=== PATIENT | male | born 1995 | race African-American/Black ===

== ENCOUNTER 2018-09-28 11:27 | Inpatient (IN) | payer OTHER ==
[2018-09-28 12:12] LABS: HEMATOCRIT 47.2 % (42.0-52.0); HEMOGLOBIN 15.7 g/dl (13.5-17.5); MEAN CORPUSCULAR HEMOGLOBIN 29.5 pg (27.0-33.0); MEAN CORPUSCULAR HGB CONC 33.3 g/dl (32.0-36.5); MEAN CORPUSCULAR VOLUME 88.6 fl (80.0-96.0); PLATELET COUNT, AUTOMATED 239 10^3/uL (150-450); RED BLOOD COUNT 5.33 10^6/uL (4.30-6.10); RED CELL DISTRIBUTION WIDTH 12.2 % (11.5-14.5); WHITE BLOOD COUNT 3.9 10^3/uL (4.0-10.0)
[2018-09-28 12:48] LABS: AMPHETAMINES LEVEL URINE NEGATIVE (NEGATIVE); BARBITURATES URINE NEGATIVE (NEGATIVE); BENZODIAZEPINES URINE NEGATIVE (NEGATIVE); CANNABINOIDS URINE NEGATIVE (NEGATIVE); COCAINE METABOLITE URINE NEGATIVE (NEGATIVE); METHADONE URINE NEGATIVE (NEGATIVE); OPIATES URINE NEGATIVE (NEGATIVE); PHENCYCLIDINE URINE NEGATIVE (NEGATIVE)
[2018-09-28 13:02] LABS: ACETAMINOPHEN LEVEL < 2.0 UG/ML (10.0-30.0); ALBUMIN/GLOBULIN RATIO 1.05 (1.00-1.93); ALKALINE PHOSPHATASE 59 U/L (45-117); ALT/SGPT 31 U/L (12-78); ANION GAP 7 MEQ/L (8-16); AST/SGOT 21 U/L (7-37); BILIRUBIN,DIRECT 0.1 MG/DL (0.0-0.2); BILIRUBIN,TOTAL 0.4 MG/DL (0.2-1.0); BLOOD UREA NITROGEN 8 MG/DL (7-18); CALCIUM LEVEL 9.1 MG/DL (8.5-10.1); CARBON DIOXIDE LEVEL 29 MEQ/L (21-32); CHLORIDE LEVEL 105 MEQ/L (98-107); CREATININE FOR GFR 0.95 MG/DL (0.70-1.30); GLOMERULAR FILTRATION RATE > 60.0 (>60); GLUCOSE, FASTING 67 MG/DL (70-100); POTASSIUM SERUM 3.6 MEQ/L (3.5-5.1); SALICYLATE LEVEL < 1.7 MG/DL (5.0-30.0); SODIUM LEVEL 141 MEQ/L (136-145); TOTAL PROTEIN 7.8 GM/DL (6.4-8.2)
[2018-09-28 13:03] LABS: ETHYL ALCOHOL (ETHANOL) < 0.003 % (0.000-0.010)
[2018-09-28] MEDS ORDERED: MAALOX 30 ML SUSP *UDC PO (16:15)
[2018-09-28] MEDS ORDERED: LORazepam 1 MG TAB PO (16:15)
[2018-09-28] MEDS ORDERED: MOM 30ML SUSPENSION UDC PO (16:15)
[2018-09-28] MEDS ORDERED: ACETAMINOPHEN TAB 650MG DOSE (2X325MG) PO (16:15)
[2018-09-29] MEDS: SERTRALINE HCL 25 MG TABLET PO (12:02)
[2018-09-30] MEDS: SERTRALINE HCL 25 MG TABLET PO (08:12)
[2018-10-01] MEDS: SERTRALINE HCL 25 MG TABLET PO (08:57)
[2018-10-01] MEDS: traZODone 50 MG TAB PO (20:28)
[2018-10-02] MEDS: SERTRALINE HCL 25 MG TABLET PO (08:43)
[2018-10-02] MEDS: traZODone 50 MG TAB PO (20:48)
[2018-10-03] MEDS: SERTRALINE HCL 25 MG TABLET PO (10:05)
[2018-10-04] MEDS: SERTRALINE HCL 25 MG TABLET PO (08:50)
[2018-10-05] MEDS: SERTRALINE HCL 25 MG TABLET PO (09:08)
== END 2018-10-05 11:45 | disposition home or self-care (01) | DRG 881 ==
LOC: M PSY 09-30 19:08 → M ED 11:27 → M ED INP 16:12 → M PSY 17:10
DX: F32.9 Major depressive disorder, single episode, unspecified (principal); Z91.010 Allergy to peanuts; Z91.018 Allergy to other foods; Z88.8 Allergy status to other drugs, medicaments and biological substances

== ENCOUNTER 2019-02-02 03:03 | Emergency (ER) | payer OTHER ==
[~2019-02-02] VITALS: Ht 188 cm; Wt 70.0 kg
[~2019-02-02 03:03] MED LIST: SERT25TA85 PO; TRAZO50TA PO
[2019-02-02 04:17] LABS: BASO # 0.1 10^3/uL (0.0-0.2); BASO % 0.9 % (0.0-1.0); EOS # 0.2 10^3/uL (0.0-0.50); EOS % 3.3 % (0.0-3.0); HEMATOCRIT 47.6 % (42.0-52.0); HEMOGLOBIN 15.4 g/dl (13.5-17.5); LYMPH % 56.1 % (24.0-44.0); MEAN CORPUSCULAR HEMOGLOBIN 28.9 pg (27.0-33.0); MEAN CORPUSCULAR HGB CONC 32.4 g/dl (32.0-36.5); MEAN CORPUSCULAR VOLUME 89.3 fl (80.0-96.0); MONO # 0.6 10^3/uL (0.0-0.8); MONO % 11.7 % (0.0-5.0); NEUTROPHILS # 1.5 10^3/uL (1.8-7.7); PLATELET COUNT, AUTOMATED 236 10^3/uL (150-450); RED BLOOD COUNT 5.33 10^6/uL (4.30-6.10); WHITE BLOOD COUNT 5.4 10^3/uL (4.0-10.0)
[2019-02-02] MEDS ORDERED: methylPREDNISolone INJ 125 MG/2 ML VIAL (J2930) IV ONE (04:30)
[2019-02-02] MEDS ORDERED: diphenhydrAMINE INJ 50MG/ML VIAL (J1200) IV ONE (04:30)
[2019-02-02] MEDS ORDERED: FAMOTIDINE IV BAG 20 MG in APPROPRIATE DILUENT 1 EA IV ONE (04:30)
[2019-02-02 04:40] LABS: BLOOD UREA NITROGEN 18 MG/DL (7-18); CALCIUM LEVEL 8.8 MG/DL (8.5-10.1); CARBON DIOXIDE LEVEL 30 MEQ/L (21-32); CHLORIDE LEVEL 107 MEQ/L (98-107); CK-MB VALUE MASS < 1.0 NG/ML (<3.6); CPK CREATINE PHOSPHOKINASE 182 U/L (39-308); GLOMERULAR FILTRATION RATE > 60.0 (>60); GLUCOSE, FASTING 81 MG/DL (70-100); MB/CK RELATIVE INDEX 0.55 (< OR =4); POTASSIUM SERUM 4.1 MEQ/L (3.5-5.1); SODIUM LEVEL 141 MEQ/L (136-145); TROPONIN I < 0.02 NG/ML (< 0.10)
[2019-02-02] MEDS ORDERED: PRED20TA PO (05:51)
[2019-02-02 05:57] VITALS: BP 120/70
--- NOTE | 2019-02-02 06:57 | ECGEPIP ---
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
== END 2019-02-02 06:03 | disposition home or self-care (01) ==
LOC: M ED 03:03
DX: R07.89 Other chest pain (principal); T78.01XA Anaphylactic reaction due to peanuts, initial encounter; Z91.018 Allergy to other foods; Z91.010 Allergy to peanuts
CPT/HCPCS: 80048; 82550; 82553; 84484; 85025; 93005; 93041; 94760; 96365; 96375; 99285; J1200; J2930

== ENCOUNTER 2019-02-24 22:30 | Emergency (ER) | payer OTHER ==
[~2019-02-24] VITALS: Ht 188 cm; Wt 70.0 kg
[~2019-02-24 22:30] MED LIST changes: +PRED20TA PO
[2019-02-24 22:31] VITALS: BP 118/73
[2019-02-24] MEDS ORDERED: IBUP-1022 PO (22:54)
[2019-02-24] MEDS ORDERED: IBUPROFEN 600 MG TAB PO ONE (23:00)
== END 2019-02-24 23:00 | disposition home or self-care (01) ==
LOC: M ED 22:30
DX: T50.B15A Adverse effect of smallpox vaccines, initial encounter (principal); Y92.9 Unspecified place or not applicable; Y93.9 Activity, unspecified; Z91.018 Allergy to other foods; Z91.010 Allergy to peanuts

== ENCOUNTER 2019-04-21 22:39 | Emergency (ER) | payer OTHER ==
[~2019-04-21] VITALS: Ht 188 cm; Wt 66.8 kg
[~2019-04-21 22:39] MED LIST changes: +IBUP-1022 PO; +TRAZ1TAB10 PO; -TRAZO50TA PO
[2019-04-21] MEDS ORDERED: NS 1,000 ML IV ONE (23:30)
[2019-04-21 23:37] LABS: BASO # 0.1 10^3/uL (0.0-0.2); BASO % 0.8 % (0.0-1.0); EOS # 0.2 10^3/uL (0.0-0.50); EOS % 3.6 % (0.0-3.0); HEMATOCRIT 44.2 % (42.0-52.0); HEMOGLOBIN 14.4 g/dl (13.5-17.5); LYMPH # 3.1 10^3/uL (1.5-6.5); LYMPH % 52.1 % (24.0-44.0); MEAN CORPUSCULAR HEMOGLOBIN 29.9 pg (27.0-33.0); MEAN CORPUSCULAR HGB CONC 32.6 g/dl (32.0-36.5); MEAN CORPUSCULAR VOLUME 91.7 fl (80.0-96.0); MONO # 0.6 10^3/uL (0.0-0.8); MONO % 10.8 % (0.0-5.0); NEUTROPHILS # 1.9 10^3/uL (1.8-7.7); NEUTROPHILS % 32.7 % (36.0-66.0); PLATELET COUNT, AUTOMATED 196 10^3/uL (150-450); RED BLOOD COUNT 4.82 10^6/uL (4.30-6.10); WHITE BLOOD COUNT 5.9 10^3/uL (4.0-10.0)
[2019-04-22 00:05] LABS: ALBUMIN 3.4 GM/DL (3.2-5.2); ALT/SGPT 41 U/L (12-78); BILIRUBIN,DIRECT 0.1 MG/DL (0.0-0.2); BILIRUBIN,TOTAL 0.3 MG/DL (0.2-1.0); BLOOD UREA NITROGEN 17 MG/DL (7-18); CALCIUM LEVEL 8.4 MG/DL (8.5-10.1); CARBON DIOXIDE LEVEL 31 MEQ/L (21-32); CHLORIDE LEVEL 107 MEQ/L (98-107); CREATININE FOR GFR 1.11 MG/DL (0.70-1.30); GLOMERULAR FILTRATION RATE > 60.0 (>60); GLUCOSE, FASTING 78 MG/DL (70-100); POTASSIUM SERUM 4.2 MEQ/L (3.5-5.1); SODIUM LEVEL 144 MEQ/L (136-145); TOTAL PROTEIN 6.9 GM/DL (6.4-8.2)
[2019-04-22 00:56] VITALS: BP 116/74
== END 2019-04-22 00:59 | disposition home or self-care (01) ==
LOC: M ED 22:39
DX: E86.0 Dehydration (principal); R19.7 Diarrhea, unspecified; Z91.018 Allergy to other foods; Z91.010 Allergy to peanuts

== ENCOUNTER 2019-06-01 04:42 | Emergency (ER) | payer OTHER ==
[~2019-06-01] VITALS: Ht 188 cm; Wt 69.0 kg
[2019-06-01 06:20] LABS: BASO % 0.8 % (0.0-1.0); EOS # 0.2 10^3/uL (0.0-0.50); HEMATOCRIT 51.6 % (42.0-52.0); HEMOGLOBIN 16.9 g/dl (13.5-17.5); LYMPH # 2.7 10^3/uL (1.5-6.5); LYMPH % 54.4 % (24.0-44.0); MEAN CORPUSCULAR HEMOGLOBIN 29.3 pg (27.0-33.0); MEAN CORPUSCULAR HGB CONC 32.8 g/dl (32.0-36.5); MEAN CORPUSCULAR VOLUME 89.4 fl (80.0-96.0); MONO # 0.5 10^3/uL (0.0-0.8); MONO % 10.8 % (0.0-5.0); NEUTROPHILS # 1.6 10^3/uL (1.8-7.7); PLATELET COUNT, AUTOMATED 216 10^3/uL (150-450); RED BLOOD COUNT 5.77 10^6/uL (4.30-6.10)
[2019-06-01 06:46] LABS: ALBUMIN 4.3 GM/DL (3.2-5.2); ALT/SGPT 38 U/L (12-78); BILIRUBIN,DIRECT 0.2 MG/DL (0.0-0.2); BILIRUBIN,TOTAL 0.9 MG/DL (0.2-1.0); BLOOD UREA NITROGEN 14 MG/DL (7-18); CALCIUM LEVEL 10.1 MG/DL (8.5-10.1); CARBON DIOXIDE LEVEL 31 MEQ/L (21-32); CHLORIDE LEVEL 107 MEQ/L (98-107); CREATININE FOR GFR 0.98 MG/DL (0.70-1.30); GLOMERULAR FILTRATION RATE > 60.0 (>60); GLUCOSE, FASTING 85 MG/DL (70-100); LIPASE 121 U/L (73-393); POTASSIUM SERUM 4.8 MEQ/L (3.5-5.1); SODIUM LEVEL 141 MEQ/L (136-145); TOTAL PROTEIN 8.2 GM/DL (6.4-8.2)
[2019-06-01] MEDS ORDERED: ISOVUE-370 76% 100ML VIAL (Q9967) As Ordered ONE (06:52)
[2019-06-01] MEDS ORDERED: NS 1,000 ML IV ONE (07:00)
--- NOTE | 2019-06-01 09:57 | REPVR ---
EXAM: CT Abdomen and Pelvis With Contrast EXAM DATE/TIME: 06/01/2019 6:48 AM CLINICAL HISTORY: 24 years old, male; Abdominal pain; Generalized; Additional info: Diffuse abdominal pain, diarrhea TECHNIQUE: Imaging protocol: Axial computed tomography images of the abdomen and pelvis with intravenous contrast. Coronal and sagittal reformatted images were created and reviewed. Radiation optimization: All CT scans at this facility use at least one of these dose optimization techniques: automated exposure control; mA and/or kV adjustment per patient size (includes targeted exams where dose is matched to clinical indication); or iterative reconstruction. Contrast material: ISO; Contrast volume: 100 ml; Contrast route: AC; COMPARISON: No relevant prior studies available. FINDINGS: Liver: Normal. No mass. Gallbladder and bile ducts: Normal. No calcified stones. No ductal dilation. Pancreas: Normal. No ductal dilation. Spleen: Heterogeneous pattern of the spleen probably on the basis of early enhancement phase. Adrenals: Normal. No mass. Kidneys and ureters: Normal. No hydronephrosis. Stomach and bowel: Prominent volume of colonic fecal debris. Components of multiple small bowel partially fluid-filled loops without extreme dilatation. Accentuation of the wall of the duodenum. Appendix: No evidence of appendicitis. Intraperitoneal space: Normal. No free air. No significant fluid collection. Retroperitoneal space: Limitation by the lack of intra-abdominal fatty tissue. Vasculature: Normal. No abdominal aortic aneurysm. Lymph nodes: Normal. No enlarged lymph nodes. Bladder: Unremarkable as visualized. Reproductive: Unremarkable as visualized. Bones/joints: No acute fracture. No dislocation. Soft tissues: Unremarkable. IMPRESSION: Accentuation of the wall of the duodenum with partial fluid-filled small bowel. This could reflect duodenitis/enteritis. Electronically signed by: Paula Harris On 06/01/2019 09:57:39 AM
[2019-06-01] MEDS ORDERED: FLAG500T PO (10:08)
[2019-06-01] MEDS ORDERED: CIPR-249 PO (10:08)
[2019-06-01 10:46] VITALS: BP 110/60
== END 2019-06-01 10:48 | disposition home or self-care (01) ==
LOC: M ED 04:42
DX: K52.9 Noninfective gastroenteritis and colitis, unspecified (principal); R51 Headache; Z91.010 Allergy to peanuts; Z91.018 Allergy to other foods
CPT/HCPCS: 74177; 80048; 80076; 81001; 83690; 85025; 96360; 96361; 99284; Q9967

== ENCOUNTER 2019-07-28 02:21 | Emergency (ER) | payer OTHER ==
[~2019-07-28] VITALS: Ht 188 cm; Wt 69.1 kg
[~2019-07-28 02:21] MED LIST changes: +CIPR-249 PO; +FLAG500T PO
[2019-07-28 02:22] VITALS: BP 127/82
[2019-07-28] MEDS ORDERED: PROT1TAB2 PO (03:07)
[2019-07-28] MEDS ORDERED: GI COCKTAIL 50ML BTL(HYOSCYAMINE/MAALOX/LIDOCAINE VISCOUS)(1:3:1) PO ONE (03:15)
[2019-07-28] MEDS ORDERED: PANTOPRAZOLE 40MG TAB (PROTONIX) PO ONE (03:15)
== END 2019-07-28 03:28 | disposition home or self-care (01) ==
LOC: M ED 02:21
DX: K21.9 Gastro-esophageal reflux disease without esophagitis (principal); Z91.018 Allergy to other foods; Z91.010 Allergy to peanuts

== ENCOUNTER 2019-08-03 12:19 | Emergency (ER) | payer OTHER ==
[~2019-08-03] VITALS: Ht 188 cm; Wt 66.8 kg
[~2019-08-03 12:19] MED LIST changes: +PROT1TAB2 PO
[2019-08-03 13:46] LABS: BASO # 0.1 10^3/uL (0.0-0.2); EOS # 0.1 10^3/uL (0.0-0.5); EOS % 2.4 % (0.0-3.0); HEMATOCRIT 48.1 % (42.0-52.0); HEMOGLOBIN 15.8 g/dl (13.5-17.5); LYMPH # 1.8 10^3/uL (1.5-5.0); LYMPH % 35.7 % (24.0-44.0); MEAN CORPUSCULAR HEMOGLOBIN 28.7 pg (27.0-33.0); MEAN CORPUSCULAR HGB CONC 32.8 g/dl (32.0-36.5); MEAN CORPUSCULAR VOLUME 87.5 fl (80.0-96.0); MONO # 0.5 10^3/uL (0.0-0.8); MONO % 10.5 % (0.0-5.0); NEUTROPHILS # 2.6 10^3/uL (1.5-8.5); NEUTROPHILS % 50.2 % (36.0-66.0); PLATELET COUNT, AUTOMATED 269 10^3/uL (150-450); WHITE BLOOD COUNT 5.1 10^3/uL (4.0-10.0)
[2019-08-03] MEDS ORDERED: ASPIRIN 81 MG CHEW TABLET PO ONE (14:00)
[2019-08-03] MEDS ORDERED: NS 1,000 ML IV ONE (14:00)
[2019-08-03 14:03] LABS: ALBUMIN 4.2 GM/DL (3.2-5.2); ALT/SGPT 42 U/L (12-78); BILIRUBIN,DIRECT 0.2 MG/DL (0.0-0.2); BILIRUBIN,TOTAL 0.6 MG/DL (0.2-1.0); BLOOD UREA NITROGEN 21 MG/DL (7-18); CALCIUM LEVEL 10.3 MG/DL (8.5-10.1); CARBON DIOXIDE LEVEL 29 MEQ/L (21-32); CHLORIDE LEVEL 105 MEQ/L (98-107); CK-MB VALUE MASS < 1.0 NG/ML (<3.6); CPK CREATINE PHOSPHOKINASE 227 U/L (39-308); CREATININE FOR GFR 1.14 MG/DL (0.70-1.30); GLOMERULAR FILTRATION RATE > 60.0 (>60); GLUCOSE, FASTING 78 MG/DL (70-100); LIPASE 137 U/L (73-393); MB/CK RELATIVE INDEX 0.44 (< OR =4); SODIUM LEVEL 139 MEQ/L (136-145); TOTAL PROTEIN 7.7 GM/DL (6.4-8.2); TROPONIN I < 0.02 NG/ML (< 0.10)
[2019-08-03] MEDS ORDERED: ISOVUE-370 76% 100ML VIAL (Q9967) As Ordered ONE (14:29)
[2019-08-03 15:21] LABS: MONO SCRN NEGATIVE (NEGATIVE)
--- NOTE | 2019-08-03 15:24 | REP ---
CT of the chest with IV contrast: There are no comparisons. The ascending aorta, aortic arch and descending aorta are unremarkable. There is no mediastinal hematoma. There are no emboli in the pulmonary trunk or central pulmonary arteries. There are no emboli in the pulmonary lobe or segment branches. There are no infiltrates. There are no pleural effusions. There are no masses or nodules. There is no mediastinal, hilar or axillary lymph adenopathy. Cardiac size is normal. However, the heart appears mildly widened transversely. There is mild pectus excavatum. The heart may be compressed between the sternum and spine. There is no pericardial effusion. The thoracic spine and sternum are unremarkable. The ribs, scapula and clavicles are unremarkable. Impression: There are no pulmonary emboli. No acute cardiopulmonary findings. Cardiac size is normal but appears widened transversely, possibly compressed between the sternum and spine as discussed above. Electronically Signed by Candido Huerta MD 08/03/2019 03:16 P
[2019-08-03 16:57] VITALS: BP 135/83
--- NOTE | 2019-08-03 17:49 | ECGEPIP ---
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 Order Number: [id number] Reading MD: Jayne Luna Measurements Intervals [place] Rate: 81 P: 80 [place]: 120 QRS: 83 QRSD: 93 T: 66 QT: 341 QTc: 396 Interpretive Statements SINUS RHYTHM WITH SINUS ARRHYTHMIA EARLY REPOLARIZATION INCREASED RATE 02/02/19 Electronically Signed on 08-03-2019 17:49:00 EDT by Jayne Luna
== END 2019-08-03 16:59 | disposition home or self-care (01) ==
LOC: M ED 12:19
DX: S29.011A Strain of muscle and tendon of front wall of thorax, initial encounter (principal); X58.XXXA Exposure to other specified factors, initial encounter; Y92.89 Other specified places as the place of occurrence of the external cause; R11.2 Nausea with vomiting, unspecified; R19.7 Diarrhea, unspecified; K21.9 Gastro-esophageal reflux disease without esophagitis; Q67.6 Pectus excavatum; Z91.010 Allergy to peanuts; Z91.018 Allergy to other foods; Z79.899 Other long term (current) drug therapy
CPT/HCPCS: 71260; 80048; 80076; 81001; 82550; 82553; 83690; 84484; 85025; 85379; 86308; 93005; 96360; 96361; 99284; Q9967